=== PATIENT | female | born 1985 | race Caucasian/White ===

== ENCOUNTER 2017-05-10 05:15 | Emergency (ER) | payer MEDICAID ==
[~2017-05-10] VITALS: Ht 165.1 cm; Wt 55.0 kg
[2017-05-10 05:39] VITALS: BP 105/60
== END 2017-05-10 10:43 | disposition home or self-care (01) ==
LOC: ER 05:15
DX: S00.83XA Contusion of other part of head, initial encounter (principal); Y04.0XXA Assault by unarmed brawl or fight, initial encounter; Y93.89 Activity, other specified; Y92.89 Other specified places as the place of occurrence of the external cause; Y99.8 Other external cause status
CPT/HCPCS: 70150; 81025; 99284; Z7610

== ENCOUNTER 2017-05-20 02:07 | Emergency (ER) | payer MEDICAID ==
[~2017-05-20] VITALS: Ht 165.1 cm; Wt 56.0 kg
[2017-05-20] MEDS ORDERED: BACITRACIN ZINC OINT UDPKT TOP ONE (04:30)
[2017-05-20] MEDS ORDERED: LIDOCAINE HCL 1%/EPI 1:200,000 30 ML VIAL MC ONE (04:30)
[2017-05-20] MEDS ORDERED: TETANUS, DIPHTHERIA, PERTUSSIS VAC/PF 0.5ML (>7YR OLD) IM ONE (04:45)
[2017-05-20 06:01] VITALS: BP 100/59
== END 2017-05-20 06:21 | disposition home or self-care (01) ==
LOC: ER 02:08
DX: S01.81XA Laceration without foreign body of other part of head, initial encounter (principal); W01.0XXA Fall on same level from slipping, tripping and stumbling without subsequent striking against object, initial encounter; Y93.89 Activity, other specified; Y92.018 Other place in single-family (private) house as the place of occurrence of the external cause
CPT/HCPCS: 12014; 90471; 90715; 99283; Z7610

== ENCOUNTER 2017-05-27 13:34 | Emergency (ER) | payer MEDICAID ==
[~2017-05-27] VITALS: Ht 165.1 cm; Wt 57.0 kg
[2017-05-27 18:23] VITALS: BP 115/63
== END 2017-05-27 18:24 | disposition home or self-care (01) ==
LOC: ER 16:20
DX: Z48.02 Encounter for removal of sutures (principal)
CPT/HCPCS: 99283; Z7610